=== PATIENT | male | born 1985 ===

== ENCOUNTER 2018-07-10 19:44 | Emergency (ER) | payer OTHER ==
[~2018-07-10] VITALS: Ht 25.4 cm; Wt 70.8 kg
== END 2018-07-10 21:46 | disposition home or self-care (01) ==
LOC: ED 19:44
DX: R51 Headache (principal); Z87.891 Personal history of nicotine dependence
CPT/HCPCS: 70450; 96361; 96374; 96375; 99284-25; J1200; J1885; J2765; J7030